=== PATIENT | male | born 1985 | race Caucasian/White ===

== ENCOUNTER 2022-10-08 14:57 | Inpatient (IN) | payer MEDICAID ==
[~2022-10-08] VITALS: Ht 193 cm; Wt 97.5 kg
[~2022-10-08 14:57] MED LIST: LISINOPRIL PO
--- NOTE | 2022-10-08 15:15 | NUR ---
BIBS W/ C/O HEADACHE/DIZZINESS X 3 WEEKS, WENT TO URGENT CARE AND B=230/90. TO ER BED 9.
--- NOTE | 2022-10-08 15:35 | NUR ---
AUTOMATIC PRESSER AT BEDSIDE FOR XRAY
--- NOTE | 2022-10-08 15:45 | NUR ---
LAC #20, BLOOD DRAWN AND COLLECTED BY PHLEB AT BEDSIDE
[2022-10-08 16:00] LABS: BASOPHILS # (AUTO) 0.1 K/uL (0.0-0.2); BASOPHILS % (AUTO) 0.7 % (0.0-2.0); EOSINOPHILS % (AUTO) 1.4 % (0.0-6.0); HEMATOCRIT 40 % (39-51); HEMOGLOBIN 13.9 g/dL (13.5-17.5); LYMPHOCYTES # (AUTO) 1.8 K/uL (0.8-4.8); LYMPHOCYTES % (AUTO) 19.6 % (20.0-44.0); MEAN CORPUSCULAR HGB CONC 35 g/dl (31.0-36.0); MEAN CORPUSCULAR VOLUME 89 fL (80-96); MONOCYTES # (AUTO) 0.8 K/uL (0.1-1.30); MONOCYTES % (AUTO) 8.5 % (2.0-12.0); NEUTROPHILS # (AUTO) 6.4 K/uL (1.8-8.9); NEUTROPHILS % (AUTO) 69.8 % (43.0-81.0); PLATELET COUNT (AUTO) 322 K/uL (150-450); RED BLOOD CELL COUNT(AUTO) 4.53 MIL/uL (4.5-6.0); WHITE BLOOD COUNT (AUTO) 9.2 K/uL (4.3-11.0)
[2022-10-08 16:14] LABS: CALCIUM, SERUM 8.7 mg/dL (8.5-10.1); CARBON DIOXIDE 29 mmol/L (21-32); CHLORIDE 99 mmol/L (98-107); CREATININE 1.3 mg/dL (0.6-1.3); GLUCOSE 111 mg/dL (74-106); SODIUM SERUM 136 mmol/L (136-145); UREA NITROGEN, BLOOD 17 mg/dL (7-18)
[2022-10-08 16:16] LABS: POTASSIUM 2.6 mmol/L (3.5-5.1)
--- NOTE | 2022-10-08 16:23 | NUR ---
TROPONIN-100, DR PIERRE MADE AWARE.
[2022-10-08 16:28] LABS: ALANINE AMINOTRANSFERASE 21 U/L (12-78); ALBUMIN 3.6 g/dL (3.4-5.0); ALKALINE PHOSPHATASE 103 U/L (46-116); ASPARTATE AMINOTRANSFERASE 27 U/L (15-37); BILIRUBIN,DIRECT 0.2 mg/dL (0.0-0.2); BILIRUBIN,TOTAL 0.7 mg/dL (0.2-1.0); TOTAL PROTEIN, SERUM 7.4 g/dL (6.4-8.2)
[2022-10-08] MEDS ORDERED: hydrALAZINE HCL IV 20 MG VIAL IV ONE (16:30)
[2022-10-08] MEDS ORDERED: ASPIRIN 325 MG TABLET PO ONE (16:30)
[2022-10-08] MEDS ORDERED: ASPIRIN 325 MG TABLET ONE (16:50)
[2022-10-08] MEDS ORDERED: hydrALAZINE HCL IV 20 MG VIAL ONE (16:50)
[2022-10-08] MEDS ORDERED: POTASSIUM CL. PREMIX PERIPHER. 50 ML ONE (16:50)
[2022-10-08] MEDS: POTASSIUM CL. PREMIX PERIPHER. 50 ML IV SCH ×8 (17:04→23:30)
[2022-10-08] MEDS ORDERED: POTASSIUM CL. PREMIX PERIPHER. 100 ML ONE (17:10)
[2022-10-08] MEDS ORDERED: LORAZEPAM INJ 2 MG/ML VIAL ONE (17:20)
[2022-10-08] MEDS ORDERED: LORAZEPAM INJ 2 MG/ML VIAL IV ONE (17:30)
[2022-10-08] MEDS: NTG 50 MG/D5W250 ML BOTTL 250 ML IV PRN ×2 (17:45→18:54)
--- NOTE | 2022-10-08 17:45 | NUR ---
NITRO DRIP INFUSING LAC #20 Addendum: 10/08/22 at 1746 by CHRISTINA Amendment suzi in [facility] - 10/08/22 at 1746 by CHRISTINA 10MCG/HR Addendum: 10/08/22 at 1746 by CHRISTINA 10MCG/MIN
--- NOTE | 2022-10-08 17:57 | NUR ---
K-BAG #2 INFUSING LFA #20
[2022-10-08] MEDS ORDERED: AMLO2.5T4 PO (18:07)
[2022-10-08] MEDS ORDERED: MIRT-91 PO (18:07)
--- NOTE | 2022-10-08 18:54 | NUR ---
BP-208/133, HR-97; NITRO DRIP INCREASED FROM 10MCG/MIN TO 20MCG/MIN
[2022-10-08] MEDS ORDERED: AMLODIPINE BESYLATE 5 MG TABLET PO SCH (19:00)
--- NOTE | 2022-10-08 19:00 | NUR ---
BP-221/140, HR-97; NITRO DRIP INCREASED TO 25MCG/MIN
--- NOTE | 2022-10-08 19:17 | NUR ---
BP-194/137, HR-96; MAINTAINED NITRO DRIP AT 25MCG/MIN
[2022-10-08] MEDS: CLONIDINE HCL 0.1 MG TABLET PO PRN (19:44)
[2022-10-08 21:04] LABS: BASOPHILS # (AUTO) 0.1 K/uL (0.0-0.2); BASOPHILS % (AUTO) 0.6 % (0.0-2.0); EOSINOPHILS % (AUTO) 1.8 % (0.0-6.0); HEMATOCRIT 39 % (39-51); HEMOGLOBIN 13.6 g/dL (13.5-17.5); LYMPHOCYTES % (AUTO) 19.1 % (20.0-44.0); MEAN CORPUSCULAR HGB CONC 35 g/dl (31.0-36.0); MEAN CORPUSCULAR VOLUME 87 fL (80-96); MONOCYTES # (AUTO) 0.9 K/uL (0.1-1.30); MONOCYTES % (AUTO) 8.6 % (2.0-12.0); NEUTROPHILS # (AUTO) 7.3 K/uL (1.8-8.9); NEUTROPHILS % (AUTO) 69.9 % (43.0-81.0); PLATELET COUNT (AUTO) 316 K/uL (150-450); RED BLOOD CELL COUNT(AUTO) 4.45 MIL/uL (4.5-6.0); WHITE BLOOD COUNT (AUTO) 10.5 K/uL (4.3-11.0)
[2022-10-08] MEDS ORDERED: MORPHINE SULFATE INJ 2 MG/ML DISP.SYRIN IV ONE (21:30)
[2022-10-08] MEDS ORDERED: NIFEdipine XL (30MG) 30 MG TAB PO SCH (21:30)
--- NOTE | 2022-10-08 21:30 | NUR ---
PER MD AGARWAL HELD NITRO DRIP
--- NOTE | 2022-10-08 21:32 | NUR ---
PT TO CT
--- NOTE | 2022-10-08 21:39 | NUR ---
BACK FROM CT
[2022-10-08] MEDS ORDERED: MORPHINE SULFATE INJ 4 MG/ML DISP.SYRIN ONE (21:52)
--- NOTE | 2022-10-08 22:00 | NUR ---
MD AGARWAL ORDERS FOR PROCARDIA 60 MG. RECHECK BP IN ONE HOUR.
--- NOTE | 2022-10-08 23:00 | NUR ---
MD STEFANO MONTILLA, PT STILL HYPERTENTIVE, ORDER RECEIVED AND CARRIED OUT PROCARDIA 30 MG
[2022-10-09] MEDS ORDERED: NIFEdipine XL (30MG) 30 MG TAB PO ONE
[2022-10-09] MEDS ORDERED: CLONIDINE HCL 0.1 MG TABLET ONE (01:05)
[2022-10-09] MEDS: CLONIDINE HCL 0.1 MG TABLET PO PRN ×2 (01:08→03:08)
--- NOTE | 2022-10-09 01:27 | NUR ---
REPORT GIVEN TO MARYANA KUMAR FOR AMANDA.
--- NOTE | 2022-10-09 01:27 | NUR ---
Maida archer in [facility] - 10/09/22 at 0129 by JULIANNE REPORT GIVEN TO MARYANA DEL CASTILLO
--- NOTE | 2022-10-09 01:39 | NUR ---
PATIENT TRANSFERRED UNDER ACLS
--- NOTE | 2022-10-09 01:40 | NUR ---
RN NOTE; RECEIVED PT FROM ER WITH LUIS DANIEL IN RM 321-2,AAOX4 ABLE TO MAKE NEEDS KNOWN,JERROD WELL ON RM AIR SATTING 99%,NO SIGN SOB/DISTRESS NOTED,IV ACCESS ON LAC,LFA 20G AND RAC 18G PATENT AND INTACT,PT WAS ORIENT THE RM AND VERBALLY UNDERSTANDING,SAFETY MEASURE IN PLACE,CALL LIGHT WITHIN REACH,WILL CONTINUE TO MONITOR.
[2022-10-09] MEDS: ZOLPIDEM TARTRATE 5 MG TABLET PO PRN ×2 (02:03→23:24)
[2022-10-09] MEDS: ATORVASTATIN 10 MG TABLET PO SCH ×2 (02:09→21:38)
--- NOTE | 2022-10-09 02:21 | NUR ---
RN NOTE; PT SAID HE WANT TO SLEEP,ASKING FOR SLEEPING PILL,PRN AMBIEN 5MG WAS GIVEN.
[2022-10-09 04:34] VITALS: BP 183/123
--- NOTE | 2022-10-09 06:14 | NUR ---
RN NOTE; TEXTED DOC,Jeronimo AGARWALPATIENT COMPLAINED OF HEADACHE WITH A NEW ORDER,TYLENOL 650MG Q6H PRN,NORCO 5/325MG Q4H PRN,LISINOPRIL 40 MG PO DAILY FIRST NOW.
[2022-10-09] MEDS: ACETAMINOPHEN 650 MG/20.3 ML UDC PO PRN ×3 (06:22→18:06)
[2022-10-09] MEDS ORDERED: LISINOPRIL (20MG) 20 MG TABLET PO ONE (06:30)
--- NOTE | 2022-10-09 06:41 | NUR ---
RN CLOSING NOTE; PT IN BED AAOX4 ABLE TO MAKE NEEDS KNOWN,JERROD WELL ON RM AIR SATTING 97%.NO SIGN SOB/DISTRESS NOTED,PT WAS COMPLAINING HEADACHE,TYLENOL 650 MG AND LISINOPRIL 40MG WAS GIVEN.ADVICE BY Tere CERNA.IV ACCESS ON LAC,RAC 20G AND LFA18G.PATENT AND INTACT.SAFETY MEASURE IN PLACE.CALL LIGHT WITHIN REACH.WILL ENDORSED TO NEXT SHIFT.
[2022-10-09 07:00] VITALS: BP 154/93
[2022-10-09 07:37] LABS: ALBUMIN 3.6 g/dL (3.4-5.0); BILIRUBIN,TOTAL 1.5 mg/dL (0.2-1.0); CALCIUM, SERUM 8.9 mg/dL (8.5-10.1); CREATININE 1.3 mg/dL (0.6-1.3); TOTAL PROTEIN, SERUM 7.3 g/dL (6.4-8.2)
--- NOTE | 2022-10-09 08:01 | NUR ---
COMMANDING OFFICER MOTORIZED SQUAD OPENING NOTES: RECEIVED PT IN BED AWAKE, AOX4 ABLE TO MAKE NEEDS KNOWN. ON RA TOLERATING WELL. NO S/S OF SOB AND ACUTE DISTRESS NOTED. TELE MONITOR READS SINUS TACHYCARDIA, HR= 112. PT C/O OF HEADACHE 03/29, WILL MEDICATE ORDERED. IV ACCESS @ L AC #20 AND L FA #18, PATENT AND INTACT. SAFETY MEASURE IN PLACE, CALL LIGHT, TABLE AND URINAL WITHIN REACH, WILL CONT WITH PLAN OF CARE DURING SHIFT.
[2022-10-09] MEDS: ASPIRIN EC 81 MG TABLET.DR PO SCH (08:21)
[2022-10-09] MEDS: HYDROCODONE/APAP 5/325MG TABLET PO PRN ×2 (08:21→14:27)
[2022-10-09 08:31] LABS: POTASSIUM 2.4 mmol/L (3.5-5.1)
[2022-10-09] MEDS ORDERED: NIFEdipine XL (30MG) 30 MG TAB PO SCH (09:00)
[2022-10-09 09:04] LABS: THYROID STIMULATING HORMONE 2.575 uIU/mL (0.358-3.74)
--- NOTE | 2022-10-09 09:09 | NUR ---
RN NOTES: MADE MD AWARE OF PT'S K+= 2.4, PENDING ORDER.
[2022-10-09] MEDS ORDERED: POTASSIUM CHLORIDE 20 MEQ TAB.PRT.SR PO ONE (09:30)
[2022-10-09] MEDS ORDERED: POTASSIUM CHLORIDE 10 MEQ/50 ML PREMIXED IVPB FOR PERIPHERAL LINE IV ONE (09:30)
[2022-10-09] MEDS ORDERED: CT SWABBABLE VALVE TRANS SET 1 EA INFUS.SET MC ONE (10:26)
[2022-10-09] MEDS ORDERED: IOHEXOL-350 100 ML VIAL IV ONE ×2 (10:26→15:10)
[2022-10-09] MEDS: METOPROLOL TARTRATE 50 MG TABLET PO SCH ×3 (11:38→23:25)
[2022-10-09] MEDS: METOPROLOL TARTRATE INJ 5 MG/5 ML AMPUL IVP PRN ×10 (15:00→15:45)
[2022-10-09] MEDS ORDERED: METOPROLOL TARTRATE INJ 5 MG/5 ML AMPUL ONE ×3 (15:14→15:45)
[2022-10-09] MEDS ORDERED: NITROGLYCERIN 0.4 MG/TAB BOTTLE SL ONE (15:30)
--- NOTE | 2022-10-09 15:59 | NUR ---
RN NOTES: PT GIVEN DILAUDID PER MD ORDER, CONTINUES PULSE OX ADMINISTERED BY RT. RN OBSERVED PT FOR 15 MIN POST SKIMMER, NO S/S OF SOB, BREATHING EVEN AND UNLABORED, VITALS STABLE AT BP- 110/64, HR 110, 02 SAT = 94% ON RA. ENCOURAGED PT TO USE INCENTIVE SPIROMETER 4X/DAY, PT VERBALIZED UNDERSTANDING. Addendum: 10/09/22 at 1602 by NEDRA PHOENIX RN PLS DISREGARD THESE NOTES FOR PT, ERRONEOUS ENTRY
[2022-10-09 16:00] VITALS: BP 122/81
--- NOTE | 2022-10-09 17:00 | NUR ---
RN NOTES: K+ REPLACED, BP CONTROL AND PAIN MANAGEMENT ADMINISTERED ORDERED DURING SHIFT.
--- NOTE | 2022-10-09 18:35 | NUR ---
FITTER PLACER CLOSING NOTES: PT IN BED AWAKE, AOX4 ABLE TO MAKE NEEDS KNOWN. PARTNER AT BEDSIDE. ON RA TOLERATING WELL. NO S/S OF SOB AND ACUTE DISTRESS NOTED. TELE MONITOR READS SINUS RHYTHM HR= 84. IV ACCESS @ L AC #20 AND L FA #20, PATENT AND INTACT. ALL VS WNL, PT IS STABLE, CLEAN, AND COMFORTABLE. MEDS GIVEN AND NEEDS MET. SAFETY MEASURES IN PLACE, CALL LIGHT, TABLE AND URINAL WITHIN REACH, WILL ENDORSE TO PM SHIFT.
--- NOTE | 2022-10-09 19:30 | NUR ---
LAP WELDER OPENING NOTES: RECEIVED PATIENT AWAKE IN BED, ACCOMPANIED BY FAMILY, BED IN LOW POSITION CALL LIGHTS WITHIN REACH, NO COMPLAIN OF PAIN AND DISCOMFORT AT THIS TIME, ON ROOM IAR SATURATING WELL, NO SOB WAS OBSERVED, PATIENT IS A/OX4 AMBULATORY ABLE TO MAKE NEEDS KNOWN, IV LINE AT LAC#20, LFA#20SL, ON TELE MONITOR- SR-81, PATIENT KEPT CLEAN AND DRY ALL NEEDS MET WILL CONTINUE TO MONITOR
[2022-10-09 20:00] VITALS: BP 151/88
[2022-10-10] VITALS: BP 138/81
[2022-10-10 04:00] VITALS: BP 163/92
[2022-10-10] MEDS: ACETAMINOPHEN 650 MG/20.3 ML UDC PO PRN ×2 (04:11→08:17)
[2022-10-10 05:45] LABS: BASOPHILS # (AUTO) 0.1 K/uL (0.0-0.2); BASOPHILS % (AUTO) 0.7 % (0.0-2.0); EOSINOPHILS % (AUTO) 1.1 % (0.0-6.0); HEMATOCRIT 40 % (39-51); HEMOGLOBIN 13.9 g/dL (13.5-17.5); LYMPHOCYTES # (AUTO) 1.3 K/uL (0.8-4.8); LYMPHOCYTES % (AUTO) 13.8 % (20.0-44.0); MEAN CORPUSCULAR HGB CONC 34 g/dl (31.0-36.0); MEAN CORPUSCULAR VOLUME 89 fL (80-96); MONOCYTES # (AUTO) 0.5 K/uL (0.1-1.30); MONOCYTES % (AUTO) 5.3 % (2.0-12.0); NEUTROPHILS # (AUTO) 7.5 K/uL (1.8-8.9); NEUTROPHILS % (AUTO) 79.1 % (43.0-81.0); PLATELET COUNT (AUTO) 305 K/uL (150-450); RED BLOOD CELL COUNT(AUTO) 4.56 MIL/uL (4.5-6.0); WHITE BLOOD COUNT (AUTO) 9.5 K/uL (4.3-11.0)
[2022-10-10 06:05] LABS: CALCIUM, SERUM 8.7 mg/dL (8.5-10.1); CREATININE 1.5 mg/dL (0.6-1.3); MAGNESIUM 2.4 mg/dL (1.8-2.4); POTASSIUM 3.1 mmol/L (3.5-5.1)
[2022-10-10] MEDS: METOPROLOL TARTRATE 50 MG TABLET PO SCH (06:18)
--- NOTE | 2022-10-10 07:02 | NUR ---
TETRYL BLENDER OPERATOR CLOSING NOTES: PATIENT AWAKE IN BED, BED IN LOW POSITION, CALL LIGHTS WITHIN REACH, NO COMPLAIN OF PAIN AND DISCOMFORT AT THIS TIME, ON ROOM AIR SATURATING WELL, PATIENT IS A/OX4 ABLE TO MAKE NEEDS KNOWN, ON TELE MONITOR SR-79, KEPT CLEAN AND DRY ALL NEEDS MET ENDORSE TO INCOMING SHIFT
--- NOTE | 2022-10-10 07:30 | NUR ---
SURVEYOR GEOPHYSICAL PROSPECTING OPENING NOTES: RECEIVED PT IN BED AWAKE, AOX4 ABLE TO MAKE NEEDS KNOWN. ON RA TOLERATING WELL. NO S/S OF SOB AND ACUTE DISTRESS NOTED. TELE MONITOR READS SINUS TACHYCARDIA, HR= 112. NO C/O OF PAIN AND DISCOMFORT . IV ACCESS @ L AC #20 AND L FA #18, PATENT AND INTACT. SAFETY MEASURE IN PLACE, CALL LIGHT WITHIN REACH , SR UP X 2 AND , WILL CONT TO MONITOR FOR ANY CHANGES
[2022-10-10 08:00] VITALS: BP 149/99
[2022-10-10] MEDS: ASPIRIN EC 81 MG TABLET.DR PO SCH (08:17)
--- NOTE | 2022-10-10 08:30 | NUR ---
RN NOTES PATIENT COMPLAINTS OF HEADACHE AND TYLENOL GIVEN ORDERED
[2022-10-10] MEDS ORDERED: LISINOPRIL (20MG) 20 MG TABLET PO SCH (09:00)
[2022-10-10] MEDS ORDERED: METOPROLOL SUCCINATE 50 MG TAB.SR.24H PO SCH (09:00)
[2022-10-10] MEDS ORDERED: NIFEdipine XL (30MG) 30 MG TAB PO SCH (09:00)
[2022-10-10] MEDS ORDERED: NIFE-35 PO (11:27)
[2022-10-10] MEDS ORDERED: METO50TA7 PO (11:27)
[2022-10-10] MEDS ORDERED: NIFEdipine XL (30MG) 30 MG TAB PO ONE (11:30)
[2022-10-10 11:35] VITALS: BP 154/97
[2022-10-10] MEDS ORDERED: POTASSIUM CHLORIDE 20 MEQ TAB.PRT.SR PO ONE (12:00)
--- NOTE | 2022-10-10 13:00 | NUR ---
COMMAND AND CONTROL OFFICER NOTES PATIENT ALERT AND ABLE MAKE NEEDS KNOWN , ALL DUE MEDS GIVEN ORDERED , SEEN BY DR AGARWAL WITH ORDER FOR DISCHARGE , ALL DISCHARGE PAPERS WAS PREPARED , DISCHARGE INSTRUCTIONS PROVIDED REGARDING MEDICATIONS , SAFETY PRECAUTIONS AND FOLLOW UP WITH PCP , PATIENT ABLE TO UNDERSTAND INSTRUCTIONS PROVIDED , ALL BELONGINGS WERE TAKEN AND FORM WAS SIGNED, PROVIDED TRANSPORTATION VIA PRIVATE CAR , NO SOB OR DISTRESS NOTED , NO C/O OF PAIN AND DISCOMFORT UPON DISCHARGE , CADIAC MONITOR REMOVED , IV ACCESS REMOVED AND SECURED WITH TAPE WITH DRESSING APPLIED , INSTRUCTED TO REMOVE WHEN NO MORE BLEEDING , ID BAND REMOVED AND PATIENT LEFT AMBULATORY WITH NO DIZZINESS NOTED , OFFERED WHEEL CHAIR AND PREFERS TO WALK BY HIMSELF WITH .
[2022-10-11] MEDS ORDERED: NIFEdipine XL (30MG) 30 MG TAB PO SCH (09:00)
== END 2022-10-10 12:35 | disposition home or self-care (01) | DRG 199 ==
LOC: ER 15:01 → TELE 10-09 01:22
PROVIDERS: ADMIT Internal Medicine; ATTEND Internal Medicine
DX: I16.1 Hypertensive emergency (principal); I21.A1 Myocardial infarction type 2; T82.858A Stenosis of other vascular prosthetic devices, implants and grafts, initial encounter; E87.6 Hypokalemia; F41.9 Anxiety disorder, unspecified; I10 Essential (primary) hypertension; Y84.8 Other medical procedures as the cause of abnormal reaction of the patient, or of later complication, without mention of misadventure at the time of the procedure; Y92.009 Unspecified place in unspecified non-institutional (private) residence as the place of occurrence of the external cause; R77.8 Other specified abnormalities of plasma proteins; Z20.822 Contact with and (suspected) exposure to COVID-19; I70.1 Atherosclerosis of renal artery
CPT/HCPCS: 36415; 70450-TC; 71045-TC; 74175-TC; 75574; 80048-TC; 80053-TC; 80061-TC; 80076-TC; 82088; 83735-TC; 84244; 84439-TC; 84443-TC; 84484-TC; 85025-TC; 93307-TC; C9803; G0378; J0360; J2060; J2270; J3480; J3490; Q9967